=== PATIENT | male | born 1990 | race Caucasian/White ===

== ENCOUNTER 2018-07-31 13:01 | Observation (INO) ==
[2018-07-31] MEDS ORDERED: SODIUM CHLORIDE 0.9% 1000ML 1,000 ML IV SCH (13:45)
--- NOTE | 2018-07-31 14:14 | Emergency Department Note ---
Entered by Olivia Hill acting as a scribe for History of Present Illness General Chief complaint: Groin Pain Stated complaint: GROIN PAIN, POSSIBLE HERNIA Time Seen by Provider: 07/31/18 13:31 Source: patient Mode of arrival: ambulatory Limitations: no limitations History of Present Illness Provider complaint: Groin pain Onset (ago): day(s) 4 Location: pelvis (groin) and right Radiation: other (right testicle) Pain Consistency: + other (worsening) Maximum Pain Intensity: 4 Quality: + other (groin pain) Associated symptoms: + other (Additional symptoms: difficulty urinating. Denies: visible hematuria, cloudy urine, back pain) Treatments prior to arrival: none The patient is a 28 year old male with no significant past medical history who presents to the Emergency Room with complaints of worsening right-sided groin pain starting 4 days ago. The patient reports that his pain initially started as an annoyance but became more painful yesterday and radiated to his right testicle. He adds that he has had difficulty urinating but denies any hematuria, cloudy urine, and back pain. He states that he had a urine test performed at [facility]gent [facility] prior to coming to the ED and was told that he had trace hematuria. He notes that the doctor at Urgent Care expressed concern for a potential hernia because the patient's symptoms presented the day after a more intense bike ride. The patient reports that he is currently not sexually active. He denies any history of surgeries and use of any regular medications. He states that he consumes alcohol occasionally. Home Medications Home Medications Medication Instructions Recorded Confirmed Type No Known Home Medications 07/31/18 07/31/18 History Allergies Allergy/AdvReac Type Severity Reaction Status Date / Time No Known Allergies Allergy Unverified 07/31/18 14:06 Past Med/Surg History Medical History No significant past medical history Social History Preferred Language: Swedish Communication Ability: Effective Water Resource Consultant Required: No Beliefs That Will Affect Care: None Current Living Situation: Other Current Living Situation Comment: roommate current occupational status: employed Other Information That Helps Us Care for You: No Feels Safe at Home: Yes Safety Concerns: Feels Safe At This Time Smoking Status: Never smoker Do You Dip or Chew Tobacco: No Second Hand Exposure: No Tobacco Cessation Education Requested by Patient: No Hx Alcohol Use: Yes Alcohol type: beer Hx Substance Use: No Review of Systems See HPI for pertinent positives & negatives. and A total of 10 systems reviewed and were otherwise negative Physical Exam Vital Signs Vital Signs - 24 hr 07/31/18 13:14 07/31/18 14:56 07/31/18 16:34 Temperature 36.5 C Temperature Source Oral Sepsis Recent Fever Within 48 Hours No Sepsis New/Unexplained Change in Mental Status No Sepsis Action Taken by Nursing No Action Required Pulse Rate 93 H Pulse Rate [Finger] 55 L 72 Respiratory Rate 20 16 18 Respiratory Effort / Characteristics Non-Labored Respiratory Depth Normal Respiratory Pattern Blood Pressure 134/79 Blood Pressure [Right Arm] 124/75 130/76 Blood Pressure Mean 97 Blood Pressure Mean [Right Arm] 91 94 Pulse Oximetry 97 100 98 Oxygen Delivery Method Room Air Room Air 07/31/18 17:24 Temperature Temperature Source Sepsis Recent Fever Within 48 Hours Sepsis New/Unexplained Change in Mental Status Sepsis Action Taken by Nursing Pulse Rate Pulse Rate [Finger] 69 Respiratory Rate 20 Respiratory Effort / Characteristics Non-Labored Respiratory Depth Normal Respiratory Pattern Regular Blood Pressure Blood Pressure [Right Arm] 129/77 Blood Pressure Mean Blood Pressure Mean [Right Arm] 94 Pulse Oximetry 95 Oxygen Delivery Method Room Air GENERAL: Patient is awake alert in no acute distress patient is resting comfortably and showing no signs of anxiety EYES: The conjunctivae are clear. The pupils are round and reactive. EARS, NOSE, MOUTH AND THROAT: The nose is without any evidence of any deformity. Mucous membranes are moist tongue is midline NECK: The neck is nontender and supple. RESPIRATORY: Normal respiratory effort is noted there is no evidence of wheezing rhonchi or rales CARDIOVASCULAR: Regular rate and rhythm noted there no murmurs rubs or gallops normal S1 normal S2 GASTROINTESTINAL: The abdomen is soft and nondistended. There is right lower quadrant tenderness to palpation but no guarding or rigidity. : There were no inguinal masses or tenderness. Patient was evaluated while standing and there is no hernia appreciated to Valsalva. Testicles are descended bilaterally. There is epididymal tenderness on the right. Circumcised male genitalia was noted. No discharge was noted. BACK: No midline tenderness or or step-off noted range of motion in flexion extension as well as rotation no signs of muscle spasm noted MUSCULOSKELETAL/EXTREMITIES: There is no evidence of gross deformity full range of motion is noted in the hips and shoulders SKIN: There is no obvious evidence of any rash. There are no petechiae, pallor or cyanosis noted. NEUROLOGIC: Patient is awake alert and oriented x3 strength is symmetric patellar reflexes are 2+ bilaterally Course 1335: The patient was evaluated in room A4B, and a complete history and physical examination were performed. 1602: I checked on the patient and updated him on his results. 1633: I reviewed the patient's case with Dr. Camacho - Sunil Gil. Dr. Camacho will come down to evaluate the patient and take the patient to the OR. Consultations Consultation #1: I reviewed the patient's case with Dr. Camacho - Sunil Gil. Dr. Camacho will come down to evaluate the patient and take the patient to the OR. Time: 16:33 Administered Medications Discontinued Medications Bupivacaine HCl/Epinephrine Bitart (Sensorcaine/Epinephrine 0.5% Mpf 1:200,000) Confirm Administered Dose 30 ml .ROUTE .[facility] ONE Stop: 07/31/18 17:52 Last Admin: 07/31/18 18:58 Dose: 20 ml Documented by: [id number] Sodium Chloride (Nss 1000ml) 1,000 mls @ 999 mls/hr IV .[id number] JAYSON Stop: 07/31/18 14:45 Last Infusion: 07/31/18 15:15 Dose: 0 mls/hr Documented by: [id number] Admin: 07/31/18 14:19 Dose: 999 mls/hr Documented by: [id number] Ioversol (Optiray 320 100ml) 94 ml IV ONCE PRN PRN Reason: Interaction Checking Stop: 08/04/18 14:45 Last Admin: 07/31/18 14:47 Dose: 94 ml Documented by: [id number] Medical Decision Making Differential Diagnosis Differential diagnosis: Etiologies such as appendicitis, diverticulitis, PUD, biliary pathology, UTI, pancreatitis, obstruction, mesenteric ischemia, aortic pathology, infections, inflammatory bowel disease, renal colic, as well as others were entertained. Medical Records Attestation: I reviewed the patient's medical records. Home Medications Current Medication List: was personally reviewed by me Laboratory Data Attestation: I reviewed the patient's lab results. Result diagrams: 07/31/18 14:03 07/31/18 14:03 Lab Results 07/31/18 07/31/18 07/31/18 Range/Units 13:25 14:03 14:03 WBC 5.26 (4.8-10.8) K/uL RBC 4.73 (4.7-6.1) M/uL Hgb 15.3 (14.0-18.0) g/dL POC Hgb (14.0-18.0) g/dl Hct 43.7 (42-52) % POC Hct (42-52) % MCV 92.4 (80-100) fL MCH 32.3 (25-34) pg MCHC 35.0 (32-36) g/dL RDW Std Deviation 42.2 (36.4-46.3) fL RDW Coeff of Franco 12.4 (11.5-14.5) % Plt Count 190 (130-400) K/uL MPV 11.3 H (7.4-10.4) fL Immature Gran % (Auto) 0.2 % Neut % (Auto) 58.2 % Lymph % (Auto) 30.2 % [place] % (Auto) 9.5 % Eos % (Auto) 1.3 % Baso % (Auto) 0.6 % Immature Gran # (Auto) 0.01 (0.00-0.02) K/uL Neut # (Auto) 3.06 (1.4-6.5) K/uL Lymph # (Auto) 1.59 (1.2-3.4) K/uL [place] # (Auto) 0.50 (0.11-0.59) K/uL Eos # (Auto) 0.07 (0-0.5) K/uL Baso # (Auto) 0.03 (0-0.2) K/uL POC Sodium (135-144) mEq/L Sodium 141 (136-145) mmol/L POC Potassium (3.3-5.0) mEq/L Potassium 4.1 (3.5-5.1) mmol/L POC Chloride (101-112) mEq/L Chloride 109 H (98-107) mmol/L Carbon Dioxide 26 (21-32) mmol/L POC Total CO2 (24-31) mEq/l Anion Gap 6.0 (3-11) POC Anion Gap (16-25) mmol/L POC BUN (7-18) mg/dl BUN 14 (7-18) mg/dl Creatinine 1.31 (0.6-1.4) mg/dl POC Creatinine (0.6-1.3) mg/dl Est Cr Clr Drug Dosing 90.5 ml/min Est GFR ( Amer) 84.1 Est GFR (Non-Af Amer) 72.5 BUN/Creatinine Ratio 10.5 (10-20) Glucose 89 (70-99) mg/dl POC Glucose (other) (70-99) mg/dl Calcium 9.2 (8.5-10.1) mg/dl POC Ioniz Calcium Meli (1.12-1.32) mmol/l Total Bilirubin 0.6 (0.2-1) mg/dl AST 33 (15-37) U/L ALT 36 (12-78) U/L Alkaline Phosphatase 64 (45-117) U/L Total Protein 7.8 (6.4-8.2) gm/dl Albumin 4.2 (3.4-5.0) gm/dl Globulin 3.6 (2.5-4.0) gm/dl Albumin/Globulin Ratio 1.2 (0.9-2) Lipase 91 (73-393) U/L Urine Color Yellow Urine Appearance Clear (Clear) Urine pH 6.0 (4.5-7.5) Ur Specific [place] 1.010 (1.000-1.030) Urine Protein Negative (Negative) Urine Glucose (UA) Negative (Negative) Urine Ketones Negative (Negative) Urine Blood Trace H (Negative) Urine Nitrite Negative (Negative) Urine Bilirubin Negative (Negative) Urine Urobilinogen Negative (Negative) Ur Leukocyte Esterase Negative (Negative) Urine WBC (Auto) 0 (0-5) /hpf Urine RBC (Auto) 0-4 (0-4) /hpf U Hyaline Cast (Auto) 0 (0-5) /lpf U Epithel Cells (Auto) 0-5 (0-5) /lpf Urine Bacteria (Auto) Negative (Negative) 07/31/18 Range/Units 14:12 WBC (4.8-10.8) K/uL RBC (4.7-6.1) M/uL Hgb (14.0-18.0) g/dL POC Hgb 15.0 (14.0-18.0) g/dl Hct (42-52) % POC Hct 44 (42-52) % MCV (80-100) fL MCH (25-34) pg MCHC (32-36) g/dL RDW Std Deviation (36.4-46.3) fL RDW Coeff of Franco (11.5-14.5) % Plt Count (130-400) K/uL MPV (7.4-10.4) fL Immature Gran % (Auto) % Neut % (Auto) % Lymph % (Auto) % [place] % (Auto) % Eos % (Auto) % Baso % (Auto) % Immature Gran # (Auto) (0.00-0.02) K/uL Neut # (Auto) (1.4-6.5) K/uL Lymph # (Auto) (1.2-3.4) K/uL [place] # (Auto) (0.11-0.59) K/uL Eos # (Auto) (0-0.5) K/uL Baso # (Auto) (0-0.2) K/uL POC Sodium 140 (135-144) mEq/L Sodium (136-145) mmol/L POC Potassium 4.1 (3.3-5.0) mEq/L Potassium (3.5-5.1) mmol/L POC Chloride 105 (101-112) mEq/L Chloride (98-107) mmol/L Carbon Dioxide (21-32) mmol/L POC Total CO2 22 L (24-31) mEq/l Anion Gap (3-11) POC Anion Gap 18.0 (16-25) mmol/L POC BUN 14 (7-18) mg/dl BUN (7-18) mg/dl Creatinine (0.6-1.4) mg/dl POC Creatinine 1.3 (0.6-1.3) mg/dl Est Cr Clr Drug Dosing ml/min Est GFR ( Amer) Est GFR (Non-Af Amer) BUN/Creatinine Ratio (10-20) Glucose (70-99) mg/dl POC Glucose (other) 94 (70-99) mg/dl Calcium (8.5-10.1) mg/dl POC Ioniz Calcium Meli 1.15 (1.12-1.32) mmol/l Total Bilirubin (0.2-1) mg/dl AST (15-37) U/L ALT (12-78) U/L Alkaline Phosphatase (45-117) U/L Total Protein (6.4-8.2) gm/dl Albumin (3.4-5.0) gm/dl Globulin (2.5-4.0) gm/dl Albumin/Globulin Ratio (0.9-2) Lipase (73-393) U/L Urine Color Urine Appearance (Clear) Urine pH (4.5-7.5) Ur Specific [place] (1.000-1.030) Urine Protein (Negative) Urine Glucose (UA) (Negative) Urine Ketones (Negative) Urine Blood (Negative) Urine Nitrite (Negative) Urine Bilirubin (Negative) Urine Urobilinogen (Negative) Ur Leukocyte Esterase (Negative) Urine WBC (Auto) (0-5) /hpf Urine RBC (Auto) (0-4) /hpf U Hyaline Cast (Auto) (0-5) /lpf U Epithel Cells (Auto) (0-5) /lpf Urine Bacteria (Auto) (Negative) Imaging Data Radiologist's Impression: Radiology results as stated below per my review and the radiologist's interpretation: SCROTAL ULTRASOUND CLINICAL HISTORY: right sided pain COMPARISON STUDY: None. TECHNIQUE: Grayscale and color and duplex Doppler sonography of the scrotum was performed. FINDINGS: The right testis measures 4.3 x 2.9 x 1.9 cm and the left measures 4.1 x 2.2 x 1.7 cm. There is no testicular mass. Color flow within each testis is symmetric. There is no evidence for epididymitis. There are small bilateral epididymal cysts. IMPRESSION: Unremarkable scrotal ultrasound. No evidence for testicular torsion. No testicular mass. Electronically signed by: Gerard Arellano M.D. 07/31/2018 3:[address] OF THE ABDOMEN AND PELVIS WITH CONTRAST CLINICAL HISTORY: Right lower quadrant abdominal pain. COMPARISON STUDY: None. TECHNIQUE: Following IV administration of 94 mL of Optiray-320, axial images of the abdomen and pelvis were obtained from the lung bases to the proximal femurs. Images were reviewed in the axial, sagittal, and coronal planes. IV contrast was administered without complication. Automated exposure control was utilized for the study. A dose lowering technique was utilized adhering to the principles of ALARA. CT DOSE: 560.13 mGycm FINDINGS: Lung bases are clear. The liver, spleen, adrenal glands, kidneys and pancreas are normal. There is no biliary or pancreatic ductal dilatation. There is no hydronephrosis or hydroureter. There is no evidence for a bowel obstructio n. The appendix is mildly dilated, measuring 8 mm in caliber. The wall is thickened. There is a small appendicolith. There is no periappendiceal infiltration. No suspicious osseous lesions are noted. There are no urinary calculi. IMPRESSION: 1. Findings equivocal for acute appendicitis. Mildly dilated appendix with mild wall thickening and a small appendicolith. No periappendiceal infiltration. No abscess or free air. 2. No urinary calculi or hydronephrosis. 3. No bowel obstruction. Electronically signed by: Gerard Arellano M.D. 07/31/2018 3:05 PM Blood Pressure Blood Pressure Findings: Normal blood pressure MDM Narrative The patient is a 28-year-old male who presented to the emergency department with right inguinal pain. The patient has had right inguinal pain for the last 3 to 4 days. He initially presented to the [facility] and was felt to have a possible hernia so he was sent to the emergency department for further evaluation. The patient did have right testicular pain and states that he started riding a bicycle recently. I was unsure if his symptoms could be due to epididymitis but he also had right lower quadrant abdominal pain. For this reason further laboratory and radiographic studies were obtained to try to find the cause of the patient's pain. He did have a normal white blood cell count and he has no fever but his CT appears to be consistent with possible appendicitis. He was not found to have signs of epididymitis on ultrasound. He also did not have any signs of hernia on ultrasound. I discussed patient's laboratory and radiographic studies with him. Because of his findings I also discussed his case with the on-call general surgeon. They have agreed to evaluate the patient in the emergency department for further management and disposition. Impression & Plan Acute appendicitis, Right lower quadrant abdominal tenderness, Right inguinal pain Discharge Plan Visit Data *Final* Discharge Date/Time: 07/31/18 18:00 Chief Complaint: Groin Pain Stated Complaint: GROIN PAIN, POSSIBLE HERNIA ED Provider: Eliseo Dobbs Discharge Problem: Acute appendicitis, Right lower quadrant abdominal tenderness, Right inguinal pain Patient Disposition: Admitted As Inpatient Discharge Instructions Interventions: ED Discharge Assessment Last Done: 07/31/18 18:00 Forms Stand Alone Forms: My [facility] Prescriptions Prescriptions: No Action No Known Home Medications RF: 0 Referrals Referrals: PCP,NO [Primary Care Provider] - Discharge Problem: Acute appendicitis Qualifiers: Acute appendicitis type: unspecified acute appendicitis type Qualified Code(s): K35.80 - Unspecified acute appendicitis Right lower quadrant abdominal tenderness Qualifiers: Presence of rebound: not specified Qualified Code(s): R10.813 - Right lower quadrant abdominal tenderness The scribe's documentation has been prepared under my direction and personally reviewed by me in its entirety. I confirm that the note above accurately refle cts all work, treatment, procedures, and medical decision making performed by me.
[2018-07-31 14:17] LABS: Basophils # (auto) 0.03 K/uL (0-0.2); Basophils % (auto) 0.6 %; Eosinophils # (auto) 0.07 K/uL (0-0.5); Eosinophils % (auto) 1.3 %; Hematocrit (blood only) 43.7 % (42-52); Hemoglobin 15.3 g/dL (14.0-18.0); Immature Granulocytes # (auto) 0.01 K/uL (0.00-0.02); Immature Granulocytes % (auto) 0.2 %; Lymphocytes # (auto) 1.59 K/uL (1.2-3.4); Lymphocytes % (auto) 30.2 %; Mean Corpuscular Volume 92.4 fL (80-100); Mean Platelet Volume 11.3 fL (7.4-10.4); Monocytes % (auto) 9.5 %; Neutrophils # (auto) 3.06 K/uL (1.4-6.5); Neutrophils % (auto) 58.2 %; Platelet Count 190 K/uL (130-400); RDW Coefficient of Variation 12.4 % (11.5-14.5); RDW Standard Deviation 42.2 fL (36.4-46.3); Red Blood Count 4.73 M/uL (4.7-6.1); White Blood Count 5.26 K/uL (4.8-10.8)
[2018-07-31 14:25] LABS: iSTAT Creatinine 1.3 mg/dl (0.6-1.3); iSTAT Ionized Calcium 1.15 mmol/l (1.12-1.32); iSTAT Potassium 4.1 mEq/L (3.3-5.0)
[2018-07-31 14:35] LABS: Albumin Level 4.2 gm/dl (3.4-5.0); BUN Creatinine Ratio 10.5 (10-20); Calcium 9.2 mg/dl (8.5-10.1); Creatinine Clr Calc Pharmacy 90.5 ml/min; Est GFR (African American) 84.1; Est GFR (Non-African American) 72.5; Potassium 4.1 mmol/L (3.5-5.1)
[2018-07-31 14:37] LABS: Appearance Urine Clear (Clear); Bacteria Urine Automated Negative (Negative); Bilirubin Urine Negative (Negative); Blood Urine Trace (Negative); Cast Urine Automated 0 /lpf (0-5); Color Urine Yellow; Epithelial Cell Urine Auto 0-5 /lpf (0-5); Glucose Urine UA Negative (Negative); Ketones Urine Negative (Negative); Leukocyte Esterase Urine Negative (Negative); Nitrite Urine Negative (Negative); Protein Urine Negative (Negative); RBC Urine Automated 0-4 /hpf (0-4); Urobilinogen Urine Negative (Negative); WBC Urine Automated 0 /hpf (0-5)
[2018-07-31 14:38] LABS: Albumin Globulin Ratio 1.2 (0.9-2); Bilirubin,Total 0.6 mg/dl (0.2-1); Globulin 3.6 gm/dl (2.5-4.0); Total Protein 7.8 gm/dl (6.4-8.2)
[2018-07-31] MEDS ORDERED: IOVERSOL 100ml IV PRN (14:46)
--- NOTE | 2018-07-31 15:06 | CT Scan Report ---
CT OF THE ABDOMEN AND PELVIS WITH CONTRAST CLINICAL HISTORY: Right lower quadrant abdominal pain. COMPARISON STUDY: None. TECHNIQUE: Following IV administration of 94 mL of Optiray-320, axial images of the abdomen and pelvi s were obtained from the lung bases to the proximal femurs. Images were reviewed in the axial, sagitt al, and coronal planes. IV contrast was administered without complication. Automated exposure contro l was utilized for the study. A dose lowering technique was utilized adhering to the principles of A ALLISON. CT DOSE: 560.13 mGycm FINDINGS: Lung bases are clear. The liver, spleen, adrenal glands, kidneys and pancreas are normal. T here is no biliary or pancreatic ductal dilatation. There is no hydronephrosis or hydroureter. There is no evidence for a bowel obstruction. The appendix is mildly dilated, measuring 8 mm in caliber. Th e wall is thickened. There is a small appendicolith. There is no periappendiceal infiltration. No shital picious osseous lesions are noted. There are no urinary calculi. IMPRESSION: 1. Findings equivocal for acute appendicitis. Mildly dilated appendix with mild wall thickening and a small appendicolith. No periappendiceal infiltration. No abscess or free air. 2. No urinary calculi or hydronephrosis. 3. No bowel obstruction. Electronically signed by: Gerard Arellano M.D. 07/31/2018 3:05 PM
--- NOTE | 2018-07-31 15:37 | Ultrasound Report ---
SCROTAL ULTRASOUND CLINICAL HISTORY: right sided pain COMPARISON STUDY: None. TECHNIQUE: Grayscale and color and duplex Doppler sonography of the scrotum was performed. FINDINGS: The right testis measures 4.3 x 2.9 x 1.9 cm and the left measures 4.1 x 2.2 x 1.7 cm. Ther e is no testicular mass. Color flow within each testis is symmetric. There is no evidence for epididy mitis. There are small bilateral epididymal cysts. IMPRESSION: Unremarkable scrotal ultrasound. No evidence for testicular torsion. No testicular mass. Electronically signed by: Gerard Arellano M.D. 07/31/2018 3:35 PM
--- NOTE | 2018-07-31 17:25 | History & Physical Report ---
Date of Service July 31, 2018 Assessment & Plan (1) Appendicitis: clinically c/w early acute appendicitis discussed options of lap appy vs antibiotics discussed pros/cons of each discussed the risks of surgery ( bleeding/infection/dvt/pe/injury to an organ etc...) questions answered. will proceed with lap appy History of Present Illness Primary Care Provider: NO PCP pt with 4 day history of abdominal pain...worse yesterday. this AM evolved into the RLQ. [facility] to an [facility] who sent him to the ER. CT shows findings c/w early acute appendicitis Allergies Allergy/AdvReac Type Severity Reaction Status Date / Time No Known Allergies Allergy Unverified 07/31/18 14:06 Home Medications Home Medications Medication Instructions Recorded Confirmed Type No Known Home Medications 07/31/18 07/31/18 History Past Med/Surg History Medical History No significant past medical history Social History Preferred Language: Slovak current occupational status: employed Feels Safe at Home: Yes Smoking Status: Never smoker Hx Alcohol Use: Yes Review of Systems All systems reviewed & are unremarkable except as noted in HPI & below Physical Exam Physical Exam: alert/oriented. nad Heent: Pearla. EOMI Heart: RRR Lungs: CTA b/l abd: soft. +Mcburney's sign. +guarding. ext: no c/c/e Results & Data Vital Signs (Past 12 Hours) Vital Signs Temp Pulse Pulse Resp BP BP Pulse Ox 07/31/18 16:34 72 18 130/76 98 07/31/18 14:56 55 L 16 124/75 100 07/31/18 13:14 36.5 C 93 H 20 134/79 97
[2018-07-31] MEDS ORDERED: ONDANSETRON INJ 2 MG/ML 2 ML VIAL ONE (17:50)
[2018-07-31] MEDS ORDERED: SUCCINYLCHOLINE CHLORIDE 20 MG/ML 10 ML VIAL ONE (17:50)
[2018-07-31] MEDS ORDERED: DEXAMETHASONE SOD INJ 4 MG/ML VIAL ONE (17:50)
[2018-07-31] MEDS ORDERED: fentaNYL citrate 100 MCG/2 ML VIAL ONE ×2 (17:50→19:30)
[2018-07-31] MEDS ORDERED: GLYCOPYRROLATE 0.2 MG/ML VIAL ONE (17:50)
[2018-07-31] MEDS ORDERED: NEOSTIGMINE METHYLSULFATE 5 MG/5 ML SYR ONE (17:50)
[2018-07-31] MEDS ORDERED: ROCURONIUM BROMIDE 10 MG/ML 5 ML VIAL ONE (17:50)
[2018-07-31] MEDS ORDERED: MIDAZOLAM HCL 1 MG/ML 2ML VIAL ONE (17:50)
[2018-07-31] MEDS ORDERED: PROPOFOL IV EMULSION 10 MG/ML 20 ML VIAL IV ONE (17:50)
[2018-07-31] MEDS ORDERED: BUPIVACAINE/EPINEPHRINE 0.5% MPF 1:200,000 30 ML VIAL ONE (17:51)
[2018-07-31] MEDS ORDERED: fentaNYL citrate 100 MCG/2 ML VIAL IV PRN (17:59)
[2018-07-31] MEDS ORDERED: HYDROmorphone INJ 2 MG/ML SYR/VIAL IV PRN (17:59)
[2018-07-31] MEDS ORDERED: ATROPINE SULFATE 0.1 MG/ML 10ML SYR IV PRN (17:59)
[2018-07-31] MEDS ORDERED: ePHEDrine sulfate 50 MG/ML AMP IV PRN (17:59)
[2018-07-31] MEDS ORDERED: ONDANSETRON INJ 2 MG/ML 2 ML VIAL IV PRN ×2 (17:59→20:25)
--- NOTE | 2018-07-31 18:06 | Anesthesiology Consultation ---
Date of Service July 31, 2018 Assessment & Plan (1) Encounter for pre-operative examination: Chart Review Chart Review: Acceptable Risk for Surgery and Patient NOT seen in Pre Admission Testing Consults Requested none History Surgery Operation Date: 07/31/18 18:05 Proposed Procedures p Laparoscopic Appendectomy - Paresh Camacho DO Height/Weight Height: 6 ft Weight: 84.7 kg Allergies Allergy/AdvReac Type Severity Reaction Status Date / Time No Known Allergies Allergy Unverified 07/31/18 14:06 Medications Home Medications Medication Instructions Recorded Confirmed Last Taken No Known Home Medications 07/31/18 07/31/18 Unknown Active Medications Generic Name Dose Route Start Last Admin Trade Name Freq PRN Reason Stop Dose Admin Ioversol 94 ml 07/31/18 14:46 07/31/18 14:47 Optiray 320 100ml IV 08/04/18 14:45 94 ml ONCE PRN Administration Interaction Checking NPO Date Last Intake of Fluids: 07/31/18 Time Last Intake of Fluids: 12:00 Last Intake of Fluids Comment: water Date Last Intake of Solids: 07/30/18 Time Last Intake of Solids: 21:00 Past Medical History Medical History No significant past medical history Exercise / Class Metabolic Activity II 4-5 Yardwork/Stairs/Walk up hill Past Surgical History wisdom teeth Past Anesthesia History No Hx of Anesthesia Complications and No Family Hx of Anesthesia Complications History of PONV No Hx of PONV and No Hx of Motion Sickness Social History Smoking Status: Never smoker Do You Dip or Chew Tobacco: No Hx Alcohol Use: Yes Physical Exam Vital Signs Last Vital Signs Temp 36.5 C 07/31/18 13:14 Pulse 69 07/31/18 17:24 Resp 20 07/31/18 17:24 BP 129/77 07/31/18 17:24 Pulse Ox 95 07/31/18 17:24 Testing Laboratory Results 07/31/18 14:03 07/31/18 14:03 Urine Color Yellow 07/31/18 13:25 Urine Appearance Clear (Clear) 07/31/18 13:25 Urine pH 6.0 (4.5-7.5) 07/31/18 13:25 Ur Specific [place] 1.010 (1.000-1.030) 07/31/18 13:25 Urine Protein Negative (Negative) 07/31/18 13:25 Urine Glucose (UA) Negative (Negative) 07/31/18 13:25 Urine Ketones Negative (Negative) 07/31/18 13:25 Urine Nitrite Negative (Negative) 07/31/18 13:25 Ur Leukocyte Esterase Negative (Negative) 07/31/18 13:25 Urine WBC (Auto) 0 /hpf (0-5) 07/31/18 13:25 Urine RBC (Auto) 0-4 /hpf (0-4) 07/31/18 13:25 U Hyaline Cast (Auto) 0 /lpf (0-5) 07/31/18 13:25 U Epithel Cells (Auto) 0-5 /lpf (0-5) 07/31/18 13:25 Urine Bacteria (Auto) Negative (Negative) 07/31/18 13:25 07/31/18 14:12 POC Glucose (other) 94
--- NOTE | 2018-07-31 19:05 | Operative Report ---
Post Operative Report Pre & Post Diagnosis Operation Date: 07/31/18 18:05 Pre-Op Diagnosis: Acute Appendicitis Post-Op Diagnosis: Acute Appendicitis Procedure Operation Date: 07/31/18 18:05 Actual Procedures p Laparoscopic Appendectomy(Not Applicable) - Paresh Camacho DO Surgeon Paresh Camacho DO Public Area Supervisor n/a Estimated Blood Loss 10 Findings Consistent with Post-Op Diagnosis Specimens appendix Description of Procedure After informed consent was obtained the patient was taken to the operating room and placed in supine position. After successful intubation the left arm was tucked. I began by making a periumbilical incision with an 11 blade scalpel and carried this down through the soft tissue using electrocautery. The anterior rectus fascia was opened using electrocautery and 2 #0 Vicryl stay sutures were placed. The peritoneum was elevated using hemostats and incised under direct vision using a Metzenbaum scissor. A finger sweep was performed. A 12 mm Silverman trocar was placed and the abdomen was insufflated to 18 mmHg. A laparoscope was inserted and the abdomen was examined in 360. A suprapubic 5 mm port and a left lower quadrant 12 mm port were placed under direct vision. The patient was air planed to the left as well as placed in a slight Trendelenburg position. We began by looking in the right lower quadrant. We were able to readily identify the appendix and it appeared thickened and mildly inflamed. It had not perforated. There is a small amount of purulent fluid in the right lower quadrant and the pelvis. We immediately irrigated and suctioned this out. I was able to use primarily blunt dissection to pull the appendix away from the right lower quadrant sidewall. It actually abutted the right inguinal canal which could explain his testicular discomfort. I was able to make a small window in the mesentery of the appendix and then I was then able to use a ZORAIDA brown cartridge stapler to transect the base of the appendix at its junction with the cecum. Next I used another brown cartridge 60 mm stapler to transect the mesentery of the appendix. It was then placed into an Endo Catch ba g and removed from the camera port site. We thoroughly irrigated the right lower quadrant as well as the pelvis. There was adequate hemostasis. I ran the small bowel backwards from the terminal ileum for about 6 feet all of which was normal. All the peritoneal surfaces were normal. Small/ large bowel, liver, stomach etc. all appeared grossly normal. We did a final irrigation and then removed all the trochars and desufflated the abdomen. The fascia of the camera port as well as the left lower quadrant were closed using 0 Vicryl in [id number] fashion. Wounds were all irrigated and closed using 4-0 Monocryl. Marcaine was injected around them for postoperative analgesia and skin glue used as a dressing. The patient was awakened extubated and transferred to recovery in stable condition. I attest to the content of the Intraoperative Record and any orders documented therein. Any exceptions are noted below.
--- NOTE | 2018-07-31 19:26 | Anesthesiology Progress Note ---
Date of Service July 31, 2018 Anesthesia Post Procedure Vital Signs Vital Signs: Temp Pulse Pulse Resp BP BP Pulse Ox 07/31/18 17:24 69 20 129/77 95 07/31/18 16:34 72 18 130/76 98 07/31/18 14:56 55 L 16 124/75 100 07/31/18 13:14 36.5 C 93 H 20 134/79 97 Pain Intensity Groin: Pain Intensity: 2 Transfer of Care Handoff Completed per policy Notes Mental Status: alert / awake / arousable and participated in evaluation Patient Amnestic to Procedure: Yes Nausea / Vomiting: adequately controlled Pain: adequately controlled Airway Patency, RR, SpO2: stable & adequate BP & HR: stable & adequate Hydration State: stable & adequate Anesthetic Complications: no major complications apparent and Pt Satisfied with anesthetic care
[2018-07-31] MEDS ORDERED: MoRPHine SULFATE 4 MG/ML 1 ML CARP\\VIAL IV PRN (20:25)
[2018-07-31] MEDS ORDERED: IBUPROFEN 600 MG TAB PO PRN (20:25)
[2018-07-31] MEDS ORDERED: HYDROCODONE/ACETAMOPHEN 5/325MG TAB PO PRN (20:25)
[2018-07-31] MEDS ORDERED: ACETAMINOPHEN 1,000 MG/100 ML VIAL IV PRN (20:25)
[2018-07-31] MEDS ORDERED: MoRPHine SULFATE 10 MG/ML CARP/VIAL IV PRN (20:25)
[2018-07-31] MEDS: LACTATED RINGER'S 1,000 ML IV SCH (20:40)
[2018-07-31] MEDS: CEFAZOLIN 1000MG 1,000 MG/7.5 ML SYR IV SCH (21:33)
[2018-07-31] MEDS: HYDROCODONE/ACETAMOPHEN 5/325MG TAB PO PRN (23:57)
[2018-08-01] MEDS: LACTATED RINGER'S 1,000 ML IV SCH (04:38)
[2018-08-01] MEDS: CEFAZOLIN 1000MG 1,000 MG/7.5 ML SYR IV SCH (04:38)
[2018-08-01] MEDS: HYDROCODONE/ACETAMOPHEN 5/325MG TAB PO PRN (04:39)
--- NOTE | 2018-08-01 09:40 | Anesthesiology Progress Note ---
Date of Service August 01, 2018 Anesthesia Post Procedure Vital Signs Vital Signs: Temp Pulse Pulse Pulse Pulse Resp BP 08/01/18 07:22 37.3 C 98 H 16 08/01/18 03:05 37.3 C 98 H 14 07/31/18 23:28 37.1 C 79 14 07/31/18 22:36 36.8 C 75 20 07/31/18 21:05 36.7 C 68 20 07/31/18 20:42 36.7 C 57 L 18 07/31/18 19:55 36.2 C L 61 16 07/31/18 19:45 67 16 07/31/18 19:35 67 16 07/31/18 19:25 63 16 07/31/18 19:15 79 16 07/31/18 19:09 36.2 C L 94 H 16 07/31/18 17:24 69 20 07/31/18 16:34 72 18 07/31/18 14:56 55 L 16 07/31/18 13:14 36.5 C 93 H 20 134/79 BP BP Pulse Ox 08/01/18 07:22 112/67 96 08/01/18 03:05 115/65 96 07/31/18 23:28 114/73 96 07/31/18 22:36 108/74 98 07/31/18 21:05 109/64 97 07/31/18 20:42 118/77 99 07/31/18 19:55 125/63 99 07/31/18 19:45 121/68 99 07/31/18 19:35 117/64 100 07/31/18 19:25 123/67 100 07/31/18 19:15 131/72 100 07/31/18 19:09 137/72 100 07/31/18 17:24 129/77 95 07/31/18 16:34 130/76 98 07/31/18 14:56 124/75 100 07/31/18 13:14 97 Pain Intensity Groin: Pain Intensity: 3 Transfer of Care Handoff Completed per policy Notes Mental Status: alert / awake / arousable Patient Amnestic to Procedure: Yes Nausea / Vomiting: adequately controlled Pain: adequately controlled Airway Patency, RR, SpO2: stable & adequate BP & HR: stable & adequate Hydration State: stable & adequate Anesthetic Complications: no major complications apparent
--- NOTE | 2018-08-01 11:12 | Surgery Progress Note ---
Date of Service August 01, 2018 Assessment & Plan (1) Acute appendicitis: pod 1 doing well ok for d/c instructions given. Subjective doing ok. expected surgical pain. no n/v. munir clears Physical Exam Physical Exam: alert. nad abd: soft. wounds look good. Results & Data Vital Signs (Past 12 Hours) Vital Signs Temp Pulse Resp BP Pulse Ox 08/01/18 07:22 37.3 C 98 H 16 112/67 96 08/01/18 03:05 37.3 C 98 H 14 115/65 96 07/31/18 23:28 37.1 C 79 14 114/73 96 (1) Acute appendicitis Acute appendicitis type: unspecified acute appendicitis type Qualified Code(s): K35.80 - Unspecified acute appendicitis
--- NOTE | 2018-08-04 12:11 | Discharge Summary ---
Date of Service August 04, 2018 Admission HPI Per Admitting Provider pt with 4 day history of abdominal pain...worse yesterday. this AM evolved into the RLQ. [facility] who sent him to the ER. CT shows findings c/w early acute appendicitis Principal Diagnosis Acute Appendicitis Discharge Exam Gastrointestinal (Abdomen) Inspection/Auscultation: + abdominal surgical incision (dry) Percussion/Palpation: abdomen soft Discharge Data Allergies Allergy/AdvReac Type Severity Reaction Status Date / Time No Known Allergies Allergy Unverified 07/31/18 14:06 Procedures Performed Operation Date: 07/31/18 18:05 Actual Procedures p Laparoscopic Appendectomy(Not Applicable) - Paresh Camacho DO Ordered Studies 07/31/18 13:39 CT abd pelvis IV con only Stat US scrotum/testicle Stat Hospital Course (1) Acute appendicitis: 28 y/o male presented to ED with RLQ pain. CT was consistent with early appendicitis. He was taken to the OR that evening for laparoscopic appendectomy and transferred to the surgical floor for overnight observation. He was doing well in the morning and was stable for discharge. Total Time Total Time Spent Total Time Spent (In Minutes): 10 Discharge Plan Discharge Items Patient Disposition: Home - Self-Care Reason For Visit: APPENDICITIS Discharge Diagnosis: acute appendicitis Discharge Goals: Decrease discomfort and Therapeutic intervention Activity: As commented below Lifting: No more than 10 pounds Bathing Comment: may shower. no tub soaks Exercise/Sports: Wait until after follow-up appointment Non-emergency contact: Surgeon Call non-emergency contact if: you have any medication questions, your temperat ure is above 100.5, your wound has increased redness, your wound has increased drainage and your wound pain has increased Follow-up/Referrals: Paresh Camacho DO [Surgeon] - PCP,NO [Primary Care Provider] - Diet: Regular Addtl Provider Instructions: call [phone] with any concerns /questions and to schedule a follow up appnt with Dr. Camacho Prescriptions: New hydrocodone-acetaminophen [[place]] 5-325 mg tablet 1 - 2 tab PO Q6H PRN (Reason: pain) Qty: 20 RF: 0 No Action No Known Home Medications RF: 0 Stand-Alone Forms: [employer] [facility] [employer] Discharge Orders: Discharge Order (Routine); Ordered 08/01/18 Ordered By: Paresh Camacho Admission Data Admit Date/Time: 07/31/18 19:28 Attending Provider: Paresh Camacho Admit Provider: Paresh Camacho Primary Care Provider: PCP,NO Service: Surgical Services Other Interventions: Discharge Summary Assessment (RN) Last Done: 08/01/18 11:30 DC Date/Time DO NOT enter until pt leaves facility: 08/01/18 12:00
== END 2018-08-01 12:00 | disposition home or self-care (01) ==
LOC: ED 13:01 → 3W 18:00 → ED 18:00 → OR 18:00
DX: K35.80 Unspecified acute appendicitis